=== PATIENT | female | born 1945 | race Caucasian/White ===

== ENCOUNTER 2019-11-27 01:17 | Inpatient (IN) | payer MEDICARE, OTHER ==
[2019-11-27] VITALS (23 sets, daily range): BP systolic 152–198; BP diastolic 80–108
[~2019-11-27] VITALS: Ht 170.2 cm; Wt 98.7 kg
[2019-11-27] MEDS ORDERED: MORPHINE SULFATE INJ 2 MG/ML DISP.SYRIN IV ONE ×2 (01:30→03:00)
--- NOTE | 2019-11-27 01:30 | NUR ---
PT [id number] FROM HOME C/O MIDSTERNAL CHEST PAIN RD TO R JAW AND R EAR. GIVEN 2SPR NITRO AND ASA 162 TEAM ASSEMBLER. +SOB +N/V. AUDIBLE WHEEZING UPON EXPIRATION NOTED. PT AAOX4. PT CONNECTED TO THE [employer] LEAD[employer]IP AND POX.
[2019-11-27] MEDS ORDERED: ONDANSETRON HCL/PF 4 MG/2 ML VIAL ONE (01:46)
[2019-11-27] MEDS ORDERED: MORPHINE SULFATE INJ 4 MG/ML DISP.SYRIN ONE ×2 (01:46→03:12)
[2019-11-27 01:49] LABS: BASOPHILS # (AUTO) 0.2 /CMM (0.0-0.2); BASOPHILS % (AUTO) 1.2 % (0.0-2.0); EOSINOPHILS % (AUTO) 3.4 % (0.0-6.0); HEMATOCRIT 32 % (33-45); HEMOGLOBIN 10.1 g/dL (11.5-14.8); LYMPHOCYTES # (AUTO) 1.1 /CMM (0.8-4.8); LYMPHOCYTES % (AUTO) 8.4 % (20.0-44.0); MEAN CORPUSCULAR HGB CONC 32 g/dl (31.0-36.0); MEAN CORPUSCULAR VOLUME 95 fL (82-100); MONOCYTES # (AUTO) 0.8 /CMM (0.1-1.30); MONOCYTES % (AUTO) 6.3 % (2.0-12.0); NEUTROPHILS # (AUTO) 10.7 /CMM (1.8-8.9); NEUTROPHILS % (AUTO) 80.7 % (43.0-81.0); PLATELET COUNT (AUTO) 339 /CMM (150-450); RED BLOOD CELL COUNT(AUTO) 3.32 MIL/uL (4.0-5.2); WHITE BLOOD COUNT (AUTO) 13.3 K/uL (4.3-11.0)
--- NOTE | 2019-11-27 01:54 | NUR ---
BLOOD COLLECTED AND SENT TO LAB
[2019-11-27 01:56] LABS: CALCIUM, SERUM 8.7 mg/dL (8.5-10.1); CARBON DIOXIDE 22 mmol/L (21-32); CHLORIDE 105 mmol/L (98-107); CREATININE 2.9 mg/dL (0.6-1.3); GLUCOSE 254 mg/dL (74-106); POTASSIUM 4.8 mmol/L (3.5-5.1); SODIUM SERUM 139 mmol/L (136-145); UREA NITROGEN, BLOOD 66 mg/dL (7-18)
[2019-11-27] MEDS ORDERED: ONDANSETRON HCL/PF 4 MG/2 ML VIAL IV ONE ×2 (02:00→11:00)
[2019-11-27] MEDS ORDERED: FUROSEMIDE 40 MG/4 ML VIAL ONE (03:23)
[2019-11-27] MEDS ORDERED: FUROSEMIDE 40 MG/4 ML VIAL IV ONE (03:30)
[2019-11-27] MEDS ORDERED: LEVO75TA7 PO (03:55)
[2019-11-27] MEDS ORDERED: ATOR40TA PO (03:55)
[2019-11-27] MEDS ORDERED: ALLO100T PO (03:56)
[2019-11-27] MEDS ORDERED: DULA0.75 SQ (03:57)
[2019-11-27] MEDS ORDERED: DEXTROSE 50%-WATER 50 ML DISP.SYRIN IV PRN (04:00)
[2019-11-27] MEDS ORDERED: MAG HYDROX/AL HYDROX/SIMETH 30 ML UDC PO PRN (04:00)
[2019-11-27] MEDS ORDERED: ONDANSETRON HCL/PF 4 MG/2 ML VIAL IVP PRN (04:00)
[2019-11-27] MEDS ORDERED: Z GUARD REMEDY 2 OZ OINT TP PRN (04:00)
[2019-11-27] MEDS ORDERED: MORPHINE SULFATE INJ 2 MG/ML DISP.SYRIN IV PRN (04:00)
[2019-11-27] MEDS ORDERED: HYDROCODONE/APAP 5/325MG 1 EACH TABLET PO PRN (04:00)
[2019-11-27] MEDS ORDERED: MAGNESIUM HYDROXIDE 30 ML UDC PO PRN (04:00)
--- NOTE | 2019-11-27 04:00 | NUR ---
180/96 BP. MADE AWARE
--- NOTE | 2019-11-27 04:12 | NUR ---
REPORT GIVEN TO LUISA AYALA FOR MIYA
--- NOTE | 2019-11-27 04:40 | NUR ---
WIENER PACKER: ADMISSION 47 y/o female transferred via [place] from ER. Patient here for Chest pain. Skin checked done with YVETTE Santana. Coccyx blanchable redness. Patient is A/O x4. Made comfortable in bed. Safety measure discussed, verbalized understanding.
--- NOTE | 2019-11-27 06:14 | NUR ---
FURNITURE FINISHER APPRENTICE: ELEVATED BP BP elevated 184/100 with repeat checked 180/87, Patient in bed, no c/o chest pain, denies headache, no c/o nausea no vomiting. Page Ellison,EQUIPMENT SPECIALIST awaiting call back.
[2019-11-27] MEDS: INSULIN REGULAR, HUMAN 100 UNIT/ML 3 ML VIAL SQ PRN ×4 (06:23→21:09)
[2019-11-27] MEDS: BLOOD SUGAR DIAGNOSTIC 1 EACH STRIP IN SCH ×4 (06:24→21:06)
--- NOTE | 2019-11-27 06:50 | NUR ---
IT AUDITOR: END OF SHIFT REPORT Patient in bed, awake. Oxygen saturation 93% on 2L NC, 89% in RA. Shortness of breath with exertion. Sinus Rhythm with First degree AVB in the Tele monitor. Informed Dr. Calhoun Re: elevated BP with repeat after 1HR and already page NGHIA Ellison, awaiting call back. Dr. Calhoun spoke with the patient with new orders placed. Will endorse to oncoming RN.
[2019-11-27] MEDS ORDERED: HEPARIN INFUSION/D5W 500 ML IV PRN (07:30)
--- NOTE | 2019-11-27 08:00 | NUR ---
INSPECTOR HANDBAG FRAMES OPENING NOTES RECEIVED PT IN BED AWAKE ALERT AND ORIENTED X3. NO CARDIAC OR RESPIRATORY DISTRESS NOTED. NO SOB NOTED. SATURATING WELL ON 2L/MIN VIA NC. PT IS VERBALLY RESPONSIVE. RESPONDS APPROPRIATELY TO QUESTIONS. NO COMPLAINTS OF CHEST PAIN AT THIS TIME. PER NURSES REPORT PTS BP THIS AM WAS 180/[address] FALCON WAS HERE EARLY IN THE MORNING AND WAS NOTIFIED AND HAD ORDERED FOR BP MEDS WELL HEPARIN DRIP. IV ACCESS NOTED ON L FOREARM G20. INTACT AND PATENT AND FLUSHING WELL. NO S/S OF INFILTRATION OR INFECTION NOTED. DVT PUMPS APPLIED. WILL FOLLOW UP WITH PHARMACY REGARDING HEPARIN INFUSION. ALERTED PT TO NOTIFY NURSE IF SHE EXPERIENCES ANY CHEST PAIN OR TIGHTNESS. SAFETY PRECAUTIONS IN PLACE. BED LOCKED AND IN LOW POSITION. SIDE RAILS UPX2. BED ALALRM ON. CALL LIGHT WITHIN REACH.
[2019-11-27] MEDS ORDERED: ALPR0.255 MT (08:20)
[2019-11-27] MEDS ORDERED: AMLO5TAB9 MT (08:20)
[2019-11-27] MEDS ORDERED: HYDR-4076 MT (08:20)
[2019-11-27] MEDS ORDERED: HEPARIN SODIUM, PORCINE 5000 UNITS/1 ML VIAL IV ONE (08:30)
--- NOTE | 2019-11-27 08:30 | NUR ---
COAGS COGS CURRENTLY BEING DRAWN AT THIS TIME BY PHLEBOTOMMEGHANAT.
[2019-11-27] MEDS: ASPIRIN 81 MG TAB.CHEW PO SCH (08:36)
[2019-11-27] MEDS: CARVEDILOL 6.25 MG TABLET PO SCH ×2 (08:37→20:32)
[2019-11-27] MEDS: AMLODIPINE BESYLATE 5 MG TABLET PO SCH (08:38)
[2019-11-27] MEDS: hydrALAZINE HCL 50 MG TABLET PO SCH ×3 (08:38→17:04)
[2019-11-27 08:43] LABS: THYROID STIMULATING HORMONE 5.204 uIU/mL (0.358-3.74)
--- NOTE | 2019-11-27 09:00 | NUR ---
HEPARIN DRIP HEPARIN DRIP STARTED AT THIS TIME AT 24ML/HR (1200UNITS/HR). WITNESSED BY CHARGE NURSE. NO S/S OF BLEEDING NOTED.
--- NOTE | 2019-11-27 09:30 | NUR ---
TROPONIN RECEIVED CALL FROM LAB REGARDING CRITICALLY HIGH TROPONIN VALUE OF 8.041. DR. FALCON MADE AWARE. NO NEW ORDERS GIVEN. PT IS CURRENTLY RECEIVING THE HEPARIN DRIP.
[2019-11-27] MEDS: HEPARIN INFUSION/D5W 500 ML IV PRN (10:30)
--- NOTE | 2019-11-27 10:30 | NUR ---
BP BP RECHEKED AFTER ALL BP MEDS WERE GIVEN THIS AM NOTED AT 191/98 HR 87.
[2019-11-27] MEDS: methylPREDNISolone SOD SUCC 125 MG/2ML VIAL IV SCH (10:57)
--- NOTE | 2019-11-27 11:00 | NUR ---
RN NOTES RECEIVED PT ON BED , A/OX4, ON 2 L O2 N/C , RESPIRATION EVEN AND UNLABORED, NO DISTRESS NOTED , PT ON NS AT 75CC /HR AND HEPARIN GTT AT 1200 U/HR , ON TELE SR WITH FIRST DEGREE AVB, HR IN 80'S , L FA IV SITE CLEAN, DRY AND INTACT, PT IS HARD STICK , ORDER RECEIVED FOR A MIDLINE INSERTION, SR UP x3, CALL LIGHT WITHIN EASY REACH, BED LOCKED AND IN LOWEST POSITION, CONTINUE TO MONITOR .
--- NOTE | 2019-11-27 11:00 | NUR ---
NAUSEA PT STILL COMPLAINING OF NAUSEA AND EMESIS X1. DR. HUNT ORDERED TO GIVE ANOTHER DOSE OF ZOFRAN X1 NOW.
--- NOTE | 2019-11-27 11:10 | NUR ---
TRANSFER TO ICU REPORT GIVEN TO SAGE MORAN IN ICU.
[2019-11-27] MEDS: NITROGLYCERIN PACKET 1 GM PACKET TOP SCH ×2 (11:43→17:04)
[2019-11-27] MEDS: IV NS 0.9% 1,000 ML IV PRN (11:45)
[2019-11-27 14:44] LABS: APPEARANCE,URINE CLEAR (CLEAR); BILIRUBIN,URINE NEGATIVE (NEGATIVE); BLOOD, URINE SMALL Ery/uL (NEGATIVE); COLOR,URINE YELLOW (YELLOW); KETONES,URINE NEGATIVE (NEGATIVE); LEUKOCYTE ESTERASE ,URINE NEGATIVE (NEGATIVE); NITRITE, URINE POSITIVE (NEGATIVE); PROTEIN,URINE >=300 mg/dl (NEGATIVE); UGLUCOSE 250 MG/DL mg/dL (NEGATIVE); UROBILINOGEN,URINE 0.2 EU/dL (0.2)
[2019-11-27 15:14] LABS: BACTERIA,URINE 4+ /HPF (None Seen); SQUAMOUS EPITHELIAL CELL,UR 0-2 /HPF (None Seen)
[2019-11-27 15:24] LABS: EOSINOPHIL,URINE None Seen
[2019-11-27 16:27] LABS: CREATININE, URINE 28.2 MG/DL (30.0-125.0); URINE TOTAL PROTEIN 371.4 mg/dL (0-11.9)
--- NOTE | 2019-11-27 16:59 | NUR ---
RN NOTES DR FALCON NOTIFIED REGARDING TROPONIN 10.723. NO NEW ORDER GIVEN , PT STABLE , CONTINUE TO MONITOR .
--- NOTE | 2019-11-27 18:13 | NUR ---
RN NOTES PT STABLE, ON 2L O2 N/C , REFUSED TO EAT DINNER , HEPARIN GTT AT 1200U/H AND NS AT 75CC/HR RUNNING VIA L UPPER ARM MIDLINE, SITE CLEAN, DRY AND INTACT, SR UP X3, CALL LIGHT WITHIN EASY REACH, BED LOCKED AND IN LOWEST POSITION, CONTINUE TO MONITOR.
--- NOTE | 2019-11-27 19:30 | NUR ---
RN NOTES RECEIVED PATIENT IN BED AWAKE AOX4. BREATHING NORMAL NO SOB NOTED, RESPIRATION EVEN NON LABORED. ON 2L OXYGEN VIA NC SATURATING 98%. ON TELE MONITOR SHOWS SR WITH FIRST DEGREE AVB, HR IN 80'S. LFA IV AND KATHYA MIDLINE INTACT PATENT HEPARIN AND FLUIDS RUNNING WELL. SKIN WARM AND DRY TO TOUCH. ABDOMEN SOFT AND NON DISTENDED. F/C INTACT YELLOW URINE RUNNING WELL TO GRAVITY. SAFETY MEASURES IN PLACE, CALL LIGHT WITHIN REACH. WILL CONT TO MONITOR FOR MIYA.
[2019-11-27] MEDS: IPRATROPIUM NEB FS 0.5 MG/2.5 ML AMPUL.NEB NEB SCH (20:12)
[2019-11-27] MEDS: ACETAMINOPHEN 325 MG TABLET PO PRN (21:36)
[2019-11-28] VITALS (37 sets, daily range): BP systolic 117–166; BP diastolic 58–102
[2019-11-28] MEDS: NITROGLYCERIN PACKET 1 GM PACKET TOP SCH ×2 (00:09→06:12)
[2019-11-28] MEDS: IV NS 0.9% 1,000 ML IV PRN (01:04)
[2019-11-28] MEDS: IPRATROPIUM NEB FS 0.5 MG/2.5 ML AMPUL.NEB NEB SCH ×4 (01:30→20:20)
[2019-11-28] MEDS: HEPARIN INFUSION/D5W 500 ML IV PRN (04:18)
[2019-11-28 05:37] LABS: BASOPHILS % (AUTO) 0.3 % (0.0-2.0); HEMATOCRIT 30 % (33-45); HEMOGLOBIN 9.7 g/dL (11.5-14.8); LYMPHOCYTES # (AUTO) 0.8 /CMM (0.8-4.8); LYMPHOCYTES % (AUTO) 5.2 % (20.0-44.0); MEAN CORPUSCULAR HGB CONC 32 g/dl (31.0-36.0); MEAN CORPUSCULAR VOLUME 93 fL (82-100); MONOCYTES # (AUTO) 0.8 /CMM (0.1-1.30); MONOCYTES % (AUTO) 5.1 % (2.0-12.0); NEUTROPHILS # (AUTO) 13.6 /CMM (1.8-8.9); NEUTROPHILS % (AUTO) 89.4 % (43.0-81.0); PLATELET COUNT (AUTO) 351 /CMM (150-450); RED BLOOD CELL COUNT(AUTO) 3.24 MIL/uL (4.0-5.2); WHITE BLOOD COUNT (AUTO) 15.2 K/uL (4.3-11.0)
[2019-11-28] MEDS: ACETAMINOPHEN 325 MG TABLET PO PRN (06:03)
[2019-11-28 06:08] LABS: ALANINE AMINOTRANSFERASE 14 U/L (12-78); ALBUMIN 2.6 g/dL (3.4-5.0); ALKALINE PHOSPHATASE 94 U/L (46-116); ASPARTATE AMINOTRANSFERASE 38 U/L (15-37); BILIRUBIN,TOTAL 0.3 mg/dL (0.2-1.0); CALCIUM, SERUM 8.5 mg/dL (8.5-10.1); CARBON DIOXIDE 21 mmol/L (21-32); CHLORIDE 104 mmol/L (98-107); CREATININE 2.8 mg/dL (0.6-1.3); GLUCOSE 203 mg/dL (74-106); PHOSPHORUS 6.1 mg/dL (2.5-4.9); POTASSIUM 5.2 mmol/L (3.5-5.1); SODIUM SERUM 137 mmol/L (136-145); TOTAL PROTEIN, SERUM 7.1 g/dL (6.4-8.2); UREA NITROGEN, BLOOD 65 mg/dL (7-18)
[2019-11-28 06:15] LABS: CHOLESTEROL 166 mg/dL (<200); CREATINE KINASE, TOTAL 109 U/L (26-192); HDL CHOLESTEROL 45 mg/dL (40-60); LDL 96 mg/dL (0-99); THYROID STIMULATING HORMONE 1.933 uIU/mL (0.358-3.74); TRIGLYCERIDES 178 mg/dL (30-150)
--- NOTE | 2019-11-28 06:15 | NUR ---
RECEIVED CALL FROM LAB TROPONIN LEVEL 7.[address] KARUNA ELKINS NNO.
--- NOTE | 2019-11-28 06:20 | NUR ---
PATIENT C/O RIGHT SIDE JAW PAIN 4/[address]. CHARGE NURSE NOTIFIED. START EKG ORDERED.
--- NOTE | 2019-11-28 06:30 | NUR ---
EKG SHOWS SR FREIDA DR. BECKMAN AWARE NNO. WILL CONT TO MONITOR PATIENT CLOSELY.
--- NOTE | 2019-11-28 06:58 | NUR ---
RN NOTES PATIENT CONTINUES ON HEPARIN DRIP TOLERATING WELL NO S/S OF BLEEDING NOTED. ON 2L OXYGEN VIA NC SATURATING WELL 99%. KATHYA MIDLINE INTACT PATENT RUNNING WELL. NO S/S OF ACUTE DISTRESS NOTED. F/C INTACT URINE RUNNING TO GRAVITY. SAFETY MEASURES IN PLACE. ENDORSE TO AM NURSE FOR MIYA.
--- NOTE | 2019-11-28 07:05 | NUR ---
RN NOTES RECEIVED PATIENT ON BED A/O X4. ON 2L OXYGEN VIA NC SATURATING 98%. ON TELE MONITOR SHOWS SR WITH FIRST DEGREE AVB, HR IN 70'S, . PT HARPREET ANY CHEST PAIN AT THIS TIME, CONTINUE TO MONITOR . LFA IV AND KATHYA MIDLINE SITES , CLEAN, DRY AND INTACT PATENT, HEPARIN AT 1400U/HR RUNNING, SKIN WARM AND DRY TO TOUCH. NGUYEN DRINING TO GRAVITY WITH YELLOW CLEAR URINE, SR UP x3, CALL LIGHT WITHIN EASY REACH, SAFETY MEASURES IN PLACE, CALL LIGHT WITHIN REACH. WILL CONT TO MONITOR.
[2019-11-28] MEDS: AMLODIPINE BESYLATE 5 MG TABLET PO SCH (08:29)
[2019-11-28] MEDS: ASPIRIN 81 MG TAB.CHEW PO SCH (08:32)
[2019-11-28] MEDS: CARVEDILOL 6.25 MG TABLET PO SCH ×2 (08:33→21:02)
[2019-11-28] MEDS: BLOOD SUGAR DIAGNOSTIC 1 EACH STRIP IN SCH ×3 (08:34→17:13)
[2019-11-28] MEDS: methylPREDNISolone SOD SUCC 125 MG/2ML VIAL IV SCH (08:34)
[2019-11-28] MEDS: hydrALAZINE HCL 50 MG TABLET PO SCH ×3 (08:34→16:31)
[2019-11-28] MEDS: INSULIN REGULAR, HUMAN 100 UNIT/ML 3 ML VIAL SQ PRN ×2 (08:35→17:12)
[2019-11-28] MEDS ORDERED: FUROSEMIDE 40 MG/4 ML VIAL IV SCH (10:30)
[2019-11-28] MEDS ORDERED: IV NS 0.9% 1,000 ML IV PRN (11:00)
[2019-11-28] MEDS ORDERED: IV NS 0.9% 50 ML IV ONE (11:08)
[2019-11-28] MEDS ORDERED: VERAPAMIL HCL IV 5 MG/2 ML VIAL ONE (11:09)
[2019-11-28] MEDS ORDERED: NITROGLYCERIN ICAR 1,000 MCG/10 ML VIAL ICAR ONE (11:09)
[2019-11-28] MEDS ORDERED: IODIXANOL 150 ML IV ONE (11:09)
[2019-11-28] MEDS ORDERED: LIDOCAINE HCL/PF 1% 30 ML SDV ONE (11:09)
[2019-11-28] MEDS ORDERED: IV SET PRIMARY PUMP SET 1 EA INFUS.SET MC ONE ×2 (11:18→11:31)
--- NOTE | 2019-11-28 11:23 | NUR ---
RN NOTES PT GOING TO CRUISE DIRECTOR IN STABLE CONDITION AT THIS TIME,
[2019-11-28] MEDS ORDERED: IV NS 0.9% 500 ML IV ONE (11:31)
--- NOTE | 2019-11-28 11:38 | NUR ---
RN NOTES CALL RECEIVED FROM LAB THAT PT COVID AG ROSITA IS NEGATIVE , DR GARDNER NOTIFED.
[2019-11-28] MEDS ORDERED: MIDAZOLAM HCL 2 MG/2ML VIAL ONE (11:39)
[2019-11-28] MEDS ORDERED: HEPARIN SODIUM, PORCINE 1,000 UNIT/ML VIAL ONE ×2 (11:39→12:24)
[2019-11-28] MEDS ORDERED: FENTANYL PF 100MCG/2ML AMPUL ONE (11:39)
--- NOTE | 2019-11-28 13:07 | NUR ---
RN NOTES RECEIVED PT FROM GENETICS NURSE, PT IS A/OX4, ON 3L 2 N/C , O2 SAT WNL, NO DISTRESS NOTED, ON TELE SR HR IN 70'S, TR BAND COMPRESSION DEVICE ON ON R WRIST AND ALIGNED WITH GREEN MARKER , BALLOON IS 14 CC INFLATED PER REPORT. SITE CLEAN ,DRY AND INTACT, NO SIGNS OF BLEEDING AND HEMATOMA NOTED, , PT IS ABLE TO MOVE HER FINGERS , DENIES AND NUMBNESS AND TINGLING, POSITIVE RIGHT RADIAL PULSED NOTED ON PALPATION, SR UP X3, CALL LIGHT WITHIN EASY REACH, CONTINUE TO MONITOR .
--- NOTE | 2019-11-28 15:12 | NUR ---
s/p heart cath and patient requires higher level of care transfer for possible CABG. Dr. Burns irma be the accepting thoracic surgeon and Dr. García will be the accepting primary medicine.Spoke with Sarah at [facility] ctr [phone] and faxed clinicals - pending review . Spoke with Kendra at [facility] ctr- will coordinate once [facility] cleared patient for acceptance. Addendum: 11/28/19 at 1513 by REGIS PEARSON RN Amended: Links added.
--- NOTE | 2019-11-28 16:00 | NUR ---
RN NOTES TR BAND REMOVED ,R WRIST CATHETER INSERTION SITE CLEAN, DRY AND INTACT , NO COMPLICATION NOTED, DRESSING APPLIED TO THE SITE, CONTINUE TO MONITOR .
[2019-11-28] MEDS ORDERED: NITROGLYCERIN PACKET 1 GM PACKET TOP SCH (17:00)
[2019-11-28] MEDS ORDERED: HEPARIN INFUSION/D5W 500 ML IV PRN (17:00)
--- NOTE | 2019-11-28 18:00 | NUR ---
RN NOTES PT STABLE, WILL BE TRANSFER TO [facility] BED 3 , AROUND 9PM PER MD ORDER AND CASE MANAGEMENT.
--- NOTE | 2019-11-28 18:15 | NUR ---
RN NOTES TRANSFER SKIN PHOTO TAKEN, NO REDNESS NOTED ON SACRUM .
--- NOTE | 2019-11-28 18:33 | NUR ---
RN NOTES VSS STABLE, R WRIST CATHETER INSERTION SITE CLEAN, DRY AND INTACT , HEPARIN GTT AT 1400U/HR RUNNING AT THIS TIME, NO SIGN OF COMPLICATION NOTED, NGUYEN DRAINING TO GRAVITY, WILL ENDORSE TO GEM TECHNICIAN NURSE FOR CONTINUITY OF CARE .
--- NOTE | 2019-11-28 19:22 | NUR ---
Jason Smith at [facility] transfer ctr- [phone],patient has been cleared and accepted at [facility] going to Emergent ICU room#3, Nurse to call report to [phone]. Accepting Medicine- Dr. Galvan, cardiothoracic - Dr. Burns. Critical care transport tow picker 2 9pm with [facility] [phone]. Spoke with patient Donald [phone], aware and agreed with current plan. Addendum: 11/28/19 at 1923 by REGIS PEARSON RN Amended: Links added.
--- NOTE | 2019-11-28 19:30 | NUR ---
RN NOTES RECEIVED PATIENT IN BED AOX4, BREATHING NORMAL NO SOB NOTED. CONTINUES ON 3LOXYGEN VIA NC SATURATING 100%. NO S/S OF DISTRESS NOTED. KATHYA HEPARIN DRIP RUNNING NO S/S OF BLEEDING NO BRUISING NOTED. F/C INTACT YELLOW URINE RUNNING TO GRAVITY. PATIENT AWAITING TO BE TRANSFER TO [facility] FOR STENT PLACEMENT. ALL SAFETY MEASURES IN PLACE. WILL CONT TO MONITOR CLOSELY.
--- NOTE | 2019-11-28 20:15 | NUR ---
RN NOTES REPORT GIVEN TO SHERLYN HEAD OF HISTORY.
--- NOTE | 2019-11-28 21:40 | NUR ---
RN NOTES PATIENT LEFT VIA [facility] FOR TRANSFER TO [facility]. PATIENT IS ALERT ORIENTED X4 AWAKE AND STABLE WITH LATEST VITALS B/P-158/75,HR78, TEMP9+8.5. RR-21, O2SAT 99%. AT 3L O2 VIA NC. SAFELY TRANSFER FROM BED TO [facility] ALL BELONGINGS HAND OVER TO THE PATIENT. REPORT GIVEN TO EMS THAT PATIENT CONTINUES ON HEPARIN DRIP NEXT APTT AT 2300. RECEIVING NURSE AWARE OF THE PATIENT. PATIENT ON ROUTE TO [facility] VIA [facility].
--- NOTE | 2019-11-28 21:45 | NUR ---
CALL PATIENT'S DAUGHTER DANAE AND MILI REGARDING PATIENT'S DISCHARGE TO [facility].
[2019-11-29 13:17] LABS: PTH, INTACT 656 pg/mL (15-65)
[2019-12-01 07:30] LABS: *SPE A/G RATIO 0.7 (0.7-1.7); *SPE ALBUMIN 2.6 g/dL (2.9-4.4); *SPE ALPHA-1-GLOBULIN 0.3 g/dL (0.0-0.4); *SPE ALPHA-2-GLOBULIN 1.1 g/dL (0.4-1.0); *SPE BETA GLOBULIN 1.1 g/dL (0.7-1.3); *SPE GLOBULIN, TOTAL 3.7 g/dL (2.2-3.9); *SPE M-SPIKE Not Observed g/dL (Not Observed); *SPEGAMMA GLOBULIN 1.2 g/dL (0.4-1.8)
== END 2019-11-28 21:37 | disposition short-term general hospital (02) | DRG 280 ==
LOC: ER 01:20 → TELE 04:02 → ICU 11:04
PROVIDERS: ADMIT Nurse Practitioner Acute Care; ATTEND Nurse Practitioner Acute Care
PROC: 05H533Z Insertion of Infusion Device into Right Subclavian Vein, Percutaneous Approach (ICD-10-PCS; 2019-11-27)
PROC: B546ZZA Ultrasonography of Right Subclavian Vein, Guidance (ICD-10-PCS; 2019-11-27)
PROC: 4A023N7 Measurement of Cardiac Sampling and Pressure, Left Heart, Percutaneous Approach (ICD-10-PCS; principal; 2019-11-28)
PROC: B211YZZ Fluoroscopy of Multiple Coronary Arteries using Other Contrast (ICD-10-PCS; 2019-11-28)
DX: I21.4 Non-ST elevation (NSTEMI) myocardial infarction (principal); N17.0 Acute kidney failure with tubular necrosis; I50.23 Acute on chronic systolic (congestive) heart failure; I13.0 Hypertensive heart and chronic kidney disease with heart failure and stage 1 through stage 4 chronic kidney disease, or unspecified chronic kidney disease; J84.9 Interstitial pulmonary disease, unspecified; I16.9 Hypertensive crisis, unspecified; I42.9 Cardiomyopathy, unspecified; E03.9 Hypothyroidism, unspecified; E11.65 Type 2 diabetes mellitus with hyperglycemia; E78.5 Hyperlipidemia, unspecified; M10.9 Gout, unspecified; E11.22 Type 2 diabetes mellitus with diabetic chronic kidney disease; N18.9 Chronic kidney disease, unspecified; D63.1 Anemia in chronic kidney disease; K58.9 Irritable bowel syndrome, unspecified; E11.51 Type 2 diabetes mellitus with diabetic peripheral angiopathy without gangrene; Z98.61 Coronary angioplasty status; I25.10 Atherosclerotic heart disease of native coronary artery without angina pectoris
CPT/HCPCS: 36415; 71045-TC; 76770-TC; 80048-TC; 80053-TC; 80061-TC; 81000-TC; 82550-TC; 82570-TC; 82728-TC; 82962-TC; 83540-TC; 83735-TC; 83880; 83970; 84100-TC; 84155; 84155-TC; 84165; 84300-TC; 84439-TC; 84443-TC; 84484-TC; 85025-TC; 85610-TC; 85730-TC; 87081-TC; 87086-TC; 93307-TC; 94799-TC; A4216; C1887; G0378; G0500; J1644; J1815; J1940; J2250; J2270; J2405; J2930; J3010; J3490; J7030; J7040; Q9967; U0003-CS

== ENCOUNTER 2020-05-19 11:11 | Inpatient (IN) | payer MEDICARE, OTHER ==
[~2020-05-19] VITALS: Ht 167.6 cm; Wt 81.6 kg
[2020-05-19] VITALS (10 sets, daily range): BP systolic 64–102; BP diastolic 33–49
[~2020-05-19 11:11] MED LIST: ALLO100T PO; ALPR0.255 MT; AMLO-212 PO; ATOR40TA PO; DULA0.75 SQ; HYDR-4076 PO; LEVO75TA7 PO
--- NOTE | 2020-05-19 11:48 | NUR ---
[facility]UDLEY [facility]AMPO [facility], TO ER BED 12, HOOKED TO PODIATRIC TECHNICIAN, BP CUFF AND POX. CHANGED TO HOSP GOWN, WARM BLANKET PROVIDED, PATIENT AAO x 3 , BREATHING EVEN AND UNLABORED, NAD NOTED. AWAITING MD RODRIGUEZ. Addendum: 05/19/20 at 1947 by DOMINIC [facility], TO ER BED 12, HOOKED TO PODIATRIC TECHNICIAN, BP CUFF AND POX. CHANGED TO HOSP GOWN, WARM BLANKET PROVIDED, PATIENT AAO x 0, EYES OPEN BUT NOT RESPONDING , BREATHING EVEN AND UNLABORED, NAD NOTED. AWAITING MD RODRIGUEZ.
[2020-05-19] MEDS ORDERED: LEVO175T7 PO (11:50)
[2020-05-19] MEDS ORDERED: ROSU5TAB13 PO (11:50)
[2020-05-19] MEDS ORDERED: CARV6.252 PO (11:50)
[2020-05-19] MEDS ORDERED: CLOP75TA15 PO (11:50)
[2020-05-19] MEDS ORDERED: PANT40TA49 PO (11:50)
[2020-05-19] MEDS ORDERED: LINA72CA PO (11:50)
[2020-05-19] MEDS ORDERED: DULO20CA19 PO (11:50)
[2020-05-19] MEDS ORDERED: APIX5TAB PO (11:50)
[2020-05-19] MEDS ORDERED: NALOXONE HCL 0.4 MG/ML AMPUL ONE (12:16)
[2020-05-19] MEDS ORDERED: NALOXONE PREFILLED SYRINGE 2 MG/2 ML SYRINGE ONE (12:19)
[2020-05-19] MEDS ORDERED: IV NS 0.9% 1,000 ML BAG IV ONE ×2 (12:30→14:00)
[2020-05-19] MEDS ORDERED: CLON0.1T14 PO (12:50)
[2020-05-19] MEDS ORDERED: HYDR-4384 PO (12:50)
[2020-05-19] MEDS ORDERED: HYDR1LIQ PO (12:50)
[2020-05-19] MEDS ORDERED: INSU100V36 SQ (12:50)
[2020-05-19] MEDS ORDERED: METH500T4 PO (12:50)
[2020-05-19] MEDS ORDERED: SENN1TAB6 PO (12:50)
[2020-05-19] MEDS ORDERED: IPRA3AMP23 IH (12:50)
[2020-05-19] MEDS ORDERED: CARV12.52 PO (12:50)
[2020-05-19] MEDS ORDERED: BRIM5DRO3 EACHEYE (12:50)
[2020-05-19] MEDS ORDERED: MELA1TAB27 PO (12:50)
[2020-05-19] MEDS ORDERED: METH5TAB2 PO (12:50)
[2020-05-19] MEDS ORDERED: DEXA0.5E PO (12:50)
[2020-05-19] MEDS ORDERED: DICL20GE TOP (12:50)
[2020-05-19] MEDS ORDERED: POLY17PO4 PO (12:50)
[2020-05-19 12:53] LABS: BASOPHILS % (AUTO) 0.1 % (0.0-2.0); HEMATOCRIT 25 % (33-45); HEMOGLOBIN 7.4 g/dL (11.5-14.8); LYMPHOCYTES # (AUTO) 0.3 /CMM (0.8-4.8); LYMPHOCYTES % (AUTO) 1.8 % (20.0-44.0); MEAN CORPUSCULAR HGB CONC 30 g/dl (31.0-36.0); MEAN CORPUSCULAR VOLUME 96 fL (82-100); MONOCYTES # (AUTO) 0.1 /CMM (0.1-1.30); MONOCYTES % (AUTO) 0.9 % (2.0-12.0); NEUTROPHILS # (AUTO) 15.5 /CMM (1.8-8.9); NEUTROPHILS % (AUTO) 97.2 % (43.0-81.0); PLATELET COUNT (AUTO) 253 /CMM (150-450); RED BLOOD CELL COUNT(AUTO) 2.62 MIL/uL (4.0-5.2)
--- NOTE | 2020-05-19 12:57 | NUR ---
DAUGHTER AT BEDSIDE
--- NOTE | 2020-05-19 13:02 | NUR ---
DAUGHTER REFUSED CHEST XRAY. MADE AWARE
[2020-05-19 13:14] LABS: ALANINE AMINOTRANSFERASE 21 U/L (12-78); ALKALINE PHOSPHATASE 246 U/L (46-116); ASPARTATE AMINOTRANSFERASE 31 U/L (15-37); B-TYPE NATRIURETIC PEPTIDE 18249 PG/ML (0-125); BILIRUBIN,DIRECT 0.4 mg/dL (0.0-0.2); BILIRUBIN,TOTAL 0.8 mg/dL (0.2-1.0); CALCIUM, SERUM 8.7 mg/dL (8.5-10.1); CARBON DIOXIDE 18 mmol/L (21-32); CHLORIDE 95 mmol/L (98-107); CREATININE 5.7 mg/dL (0.6-1.3); GLUCOSE 209 mg/dL (74-106); SODIUM SERUM 134 mmol/L (136-145); TOTAL PROTEIN, SERUM 6.7 g/dL (6.4-8.2)
[2020-05-19 13:17] LABS: POTASSIUM 6.7 mmol/L (3.5-5.1); UREA NITROGEN, BLOOD 163 mg/dL (7-18)
[2020-05-19 13:18] LABS: ALBUMIN 1.4 g/dL (3.4-5.0)
[2020-05-19] MEDS ORDERED: DEXTROSE 50%-WATER 50 ML DISP.SYRIN IV ONE (13:30)
[2020-05-19] MEDS ORDERED: SODIUM BICARBONATE SYR 50 MEQ/50 ML DISP.SYRIN IV ONE (13:30)
[2020-05-19] MEDS ORDERED: Calcium Gluconate 1GM/10ML 9.3 MEQ in IV D5W 250 ML IV ONE (13:30)
[2020-05-19] MEDS ORDERED: INSULIN REGULAR, HUMAN 100 UNIT/ML 10 ML VIAL IV ONE (13:30)
[2020-05-19] MEDS ORDERED: FENTANYL PF 100MCG/2ML AMPUL IV ONE (13:30)
[2020-05-19 13:31] LABS: BAND % (MANUAL) 10 % (0.0-5.0); LYMPHOCYTES % (MANUAL) 2 % (16-48); MONOCYTES % (MANUAL) 2 % (0-11.0); NEUTROPHILS % (MANUAL) 86 (42-76)
[2020-05-19] MEDS ORDERED: FENTANYL PF 100MCG/2ML AMPUL ONE (13:56)
[2020-05-19] MEDS ORDERED: INSULIN REGULAR, HUMAN 100 UNIT/ML 10 ML VIAL ONE (13:56)
[2020-05-19] MEDS ORDERED: DEXTROSE 50%-WATER 50 ML DISP.SYRIN ONE (13:56)
[2020-05-19] MEDS ORDERED: SODIUM BICARBONATE SYR 50 MEQ/50 ML DISP.SYRIN ONE (14:04)
--- NOTE | 2020-05-19 14:07 | NUR ---
CALLED NURSING SUP FOR TELE BED.
--- NOTE | 2020-05-19 14:49 | NUR ---
DANAE RENNER DAUGHTER VERBALIZED FULL CODE FOR PATIENT
[2020-05-19] MEDS ORDERED: Calcium Gluconate 0.465 MEQ/ML VIAL IV ONE (15:31)
--- NOTE | 2020-05-19 15:44 | NUR ---
RAPID COVID AND PCR SWAB DONE AND SENT TO LAB
--- NOTE | 2020-05-19 15:44 | NUR ---
PICC LINE NURSE AT BEDSIDE
--- NOTE | 2020-05-19 16:16 | NUR ---
SHANTAL PICC LINE IN PLACED.
--- NOTE | 2020-05-19 17:33 | NUR ---
DAUGHTER SIGNED CONSENT FOR BLOOD TRANSFUSION
--- NOTE | 2020-05-19 18:05 | NUR ---
VERIFIED BLOOD UNIT WITH MARGIE RAY RN
--- NOTE | 2020-05-19 18:09 | NUR ---
PRE BLOOD TRANSFUSION VS TAKEN AND RECORDED.
--- NOTE | 2020-05-19 18:25 | NUR ---
NO NOTED BLOOD TRANSFUSION ADVERSE REACTION NOTED.
--- NOTE | 2020-05-19 18:42 | NUR ---
PATIENT NOTED W BLACK WATERY STOOL. CLEANED PATIENT, CHANGED DIAPER AND HOSP GOWN. KEPT WARM AND COMFORTABLE.
--- NOTE | 2020-05-19 19:38 | NUR ---
ENDORSEMENT GIVEN TO PATTIE MORAN FOR MIYA
--- NOTE | 2020-05-19 21:04 | NUR ---
REPORT GIVEN TO JAMI MOREL RN FOR MIYA.
--- NOTE | 2020-05-19 21:21 | NUR ---
PATIENT TAKEN UP TO ASSIGNED ROOM FOR MIYA.
[2020-05-19] MEDS ORDERED: NOREPINEPHRINE 4 MG/4 ML AMPUL IV ONE (21:52)
[2020-05-19] MEDS: NOREPINEPHRINE 32 MG in IV NS 0.9% 218 ML IV PRN (22:00)
[2020-05-19] MEDS ORDERED: ZOLPIDEM TARTRATE 5 MG TABLET PO PRN (23:00)
[2020-05-19] MEDS ORDERED: ONDANSETRON HCL/PF 4 MG/2 ML VIAL IVP PRN (23:00)
[2020-05-19] MEDS ORDERED: ACETAMINOPHEN 325 MG TABLET PO PRN (23:00)
[2020-05-19] MEDS ORDERED: IV NS 0.9% 500 ML IV ONE (23:00)
[2020-05-19] MEDS ORDERED: MAG HYDROX/AL HYDROX/SIMETH 30 ML UDC PO PRN (23:00)
[2020-05-19] MEDS ORDERED: Z GUARD REMEDY 2 OZ OINT TP PRN (23:00)
[2020-05-19] MEDS ORDERED: DOSING PER PHARMACY-AMIKACI IV XX PRN (23:00)
[2020-05-19 23:29] LABS: BASOPHILS # (AUTO) 0.1 /CMM (0.0-0.2); BASOPHILS % (AUTO) 0.2 % (0.0-2.0); EOSINOPHILS % (AUTO) 0.1 % (0.0-6.0); HEMATOCRIT 28 % (33-45); HEMOGLOBIN 8.7 g/dL (11.5-14.8); LYMPHOCYTES # (AUTO) 0.3 /CMM (0.8-4.8); MEAN CORPUSCULAR HGB CONC 31 g/dl (31.0-36.0); MEAN CORPUSCULAR VOLUME 90 fL (82-100); MONOCYTES # (AUTO) 0.1 /CMM (0.1-1.30); MONOCYTES % (AUTO) 0.4 % (2.0-12.0); NEUTROPHILS # (AUTO) 31.4 /CMM (1.8-8.9); NEUTROPHILS % (AUTO) 98.3 % (43.0-81.0); PLATELET COUNT (AUTO) 321 /CMM (150-450); RED BLOOD CELL COUNT(AUTO) 3.14 MIL/uL (4.0-5.2)
[2020-05-19 23:34] LABS: WHITE BLOOD COUNT (AUTO) 31.9 K/uL (4.3-11.0)
[2020-05-19 23:48] LABS: ALANINE AMINOTRANSFERASE 49 U/L (12-78); ALKALINE PHOSPHATASE 276 U/L (46-116); ASPARTATE AMINOTRANSFERASE 99 U/L (15-37); BILIRUBIN,TOTAL 0.9 mg/dL (0.2-1.0); CALCIUM, SERUM 8.4 mg/dL (8.5-10.1); CARBON DIOXIDE 24 mmol/L (21-32); CHLORIDE 98 mmol/L (98-107); CREATININE 3.5 mg/dL (0.6-1.3); GLUCOSE 221 mg/dL (74-106); MAGNESIUM 2.1 mg/dL (1.8-2.4); PHOSPHORUS 5.7 mg/dL (2.5-4.9); POTASSIUM 4.5 mmol/L (3.5-5.1); SODIUM SERUM 138 mmol/L (136-145); TOTAL PROTEIN, SERUM 6.3 g/dL (6.4-8.2)
[2020-05-20] VITALS (65 sets, daily range): BP systolic 52–148; BP diastolic 21–83
[2020-05-20] LABS: BAND % (MANUAL) 7 % (0.0-5.0); NEUTROPHILS % (MANUAL) 91 (42-76)
[2020-05-20 00:01] LABS: LYMPHOCYTES % (MANUAL) 1 % (16-48); MONOCYTES % (MANUAL) 1 % (0-11.0)
[2020-05-20 00:03] LABS: ALBUMIN 1.4 g/dL (3.4-5.0); UREA NITROGEN, BLOOD 101 mg/dL (7-18)
[2020-05-20] MEDS: IV NS 0.9% 1,000 ML IV PRN ×2 (00:15→10:43)
[2020-05-20] MEDS ORDERED: AMIKACIN 500 MG in IV D5W 100 ML IV ONE (00:30)
[2020-05-20] MEDS ORDERED: VANCOMYCIN 1.25 GM in IV D5W 250 ML IV ONE (00:30)
[2020-05-20] MEDS ORDERED: VANCOMYCIN 1 GM VIAL ONE (00:54)
[2020-05-20] MEDS ORDERED: AMIKACIN 250 MG/ML VIAL ONE (01:33)
--- NOTE | 2020-05-20 04:10 | NUR ---
TELEMARKETING SALES REPRESENTATIVE PT WAS ADMITTED FROM ER WITH DIAGNOSIS RENAL FAILURE, RESPIRATORY FAILURE, ANEMIA. PT IS LETHARGIC, DOES NOT FOLLOW COMMANDS, DOES NOT MOVE EXTREMITIES. PT IS HYPOTENSIVE. TOTALLY GIVEN 2.5 L. BOLUS NS. PT WAS ALSO TRANSFUSED 1 UNIT PRBC. STARTED LEVOPHED DRIP ACCORDING MD ORDER. HEMODIALYSIS WAS DONE.PT HAS LEFT UPPER CHEST EARL CATH., NO FLUID WAS REMOVED. MAIN IV NS @ 100 MLS/HR VIA RIGHT UPPER ARM PICC LINE. STARTED ANTIBIOTICS IV-VANCOMYCIN 1.25 G & AMIKACIN 500 ML. F/C WAS INSERTED, NO URINE OUTPUT, SMALL AMT. OF DARK BROWNISH COLOR BLOOD IN VAGINA /PT HAS HISTORY OF [facility]/. VSS, AFEBRILE, SCOPE-SR WITH PVC'S & PAC'S...
[2020-05-20] MEDS: HYDROCORTISONE SOD SUCCINATE 100 MG/2 ML VIAL IV SCH ×2 (04:52→12:21)
[2020-05-20 04:53] LABS: EOSINOPHILS % (AUTO) 0.6 % (0.0-6.0); HEMATOCRIT 26 % (33-45); LYMPHOCYTES # (AUTO) 0.3 /CMM (0.8-4.8); LYMPHOCYTES % (AUTO) 0.9 % (20.0-44.0); MEAN CORPUSCULAR HGB CONC 31 g/dl (31.0-36.0); MEAN CORPUSCULAR VOLUME 91 fL (82-100); MONOCYTES # (AUTO) 0.9 /CMM (0.1-1.30); MONOCYTES % (AUTO) 2.6 % (2.0-12.0); NEUTROPHILS # (AUTO) 31.8 /CMM (1.8-8.9); NEUTROPHILS % (AUTO) 95.9 % (43.0-81.0); PLATELET COUNT (AUTO) 269 /CMM (150-450); RED BLOOD CELL COUNT(AUTO) 2.84 MIL/uL (4.0-5.2)
[2020-05-20 04:56] LABS: WHITE BLOOD COUNT (AUTO) 33.2 K/uL (4.3-11.0)
[2020-05-20 05:17] LABS: CHOLESTEROL 49 mg/dL (<200); HDL CHOLESTEROL 10 mg/dL (40-60); LDL 12 mg/dL (0-99); TRIGLYCERIDES 179 mg/dL (30-150)
[2020-05-20 05:23] LABS: CALCIUM, SERUM 8.3 mg/dL (8.5-10.1); CARBON DIOXIDE 19 mmol/L (21-32); CHLORIDE 96 mmol/L (98-107); CREATININE 3.6 mg/dL (0.6-1.3); GLUCOSE 301 mg/dL (74-106); MAGNESIUM 2.1 mg/dL (1.8-2.4); POTASSIUM 4.3 mmol/L (3.5-5.1); SODIUM SERUM 139 mmol/L (136-145); UREA NITROGEN, BLOOD 101 mg/dL (7-18)
[2020-05-20 05:38] LABS: LYMPHOCYTES % (MANUAL) 3 % (16-48); MONOCYTES % (MANUAL) 4 % (0-11.0); NEUTROPHILS % (MANUAL) 93 (42-76)
[2020-05-20] MEDS ORDERED: VANCOMYCIN POST DIALYSIS 500MG IV PRN ×2 (07:00)
[2020-05-20] MEDS ORDERED: AMIKACIN 500 MG in IV D5W 100 ML IV PRN (07:00)
[2020-05-20] MEDS: ALBUTEROL FS 2.5 MG/0.5 ML VIAL.NEB NEB SCH ×2 (07:05→15:00)
[2020-05-20] MEDS: IPRATROPIUM NEB FS 0.5 MG/2.5 ML AMPUL.NEB IH SCH ×2 (07:05→15:00)
[2020-05-20] MEDS ORDERED: LEVOTHYROXINE SODIUM 175 MCG TABLET PO SCH (07:30)
[2020-05-20 08:13] LABS: ABG BASE EXCESS -7.1 mmol/L; ABG OXYGEN SATURATION 98.9 % (92.0-98.5); ABG PCO2 21.2 mmHg (35.0-45.0); ABG PH 7.478 (7.350-7.450); ABG PO2 134.2 mmHg (75.0-100.0); AaDO2 162.5 mmHg; COHb 3.5 % (0.5-1.5); MetHb 0.1 % (0.0-1.5); O2Hb 95.3 % (94.0-97.0); SITE, ABG Right Radial
[2020-05-20] MEDS ORDERED: DICLOFENAC TOPICAL 100 GM GEL..GM. TP SCH (09:00)
[2020-05-20] MEDS ORDERED: ALLOPURINOL 100 MG TABLET PO SCH (09:00)
[2020-05-20] MEDS ORDERED: Medication Not On Formulary EA (Ipratropium/Albuterol Sulfate (Duoneb 2.5-0.5 Mg/3 Ml So IH SCH (09:00)
[2020-05-20] MEDS ORDERED: CLOPIDOGREL BISULFATE 75 MG TABLET PO SCH (09:00)
--- NOTE | 2020-05-20 09:31 | NUR ---
PER MD ORDERS. PT REMAINS NPO. NO PO MEDS ADMINISTERED PER MD ORDER.
[2020-05-20] MEDS: NOREPINEPHRINE 32 MG in IV NS 0.9% 218 ML IV PRN ×2 (09:34→17:48)
[2020-05-20 09:37] LABS: THYROID STIMULATING HORMONE 0.219 uIU/mL (0.358-3.74)
[2020-05-20] MEDS ORDERED: ACETAMINOPHEN 650 MG/SUPP.RECT RC PRN (12:00)
[2020-05-20] MEDS: HEPARIN SODIUM, PORCINE 5000 UNITS/1 ML VIAL SQ SCH ×2 (12:30→17:00)
--- NOTE | 2020-05-20 13:16 | NUR ---
INFORMED PT IS ANURIC AND ONLY DARK RED FLUID DRAINING IN NGUYEN. RECEIVED VERBAL ORDER TO HOLD THE 1230 SCHEDULED HEPARIN.
--- NOTE | 2020-05-20 15:50 | NUR ---
@ [address] Pagan for airway protection / ventilation due to post cardiac arrest. pt. is intubated with 7.5 et tube secured @ 23 cm center of the lips. CO2 detector changed to yellow color, breath sounds clear bilateral post intubation. vent settings below as order: AC 24 VT 500 ML FIO2 100% NO PEEP VENT PLUGGED INTO RED OUTLET WITH ALARMS ON AND FUNCTIONING. VISH @ BEDSIDE. Addendum: 05/20/20 at 1630 by MUSTAPHA SANCHEZ RT Amended: Links added.
[2020-05-20] MEDS ORDERED: ATROPINE SULFATE 1 MG/10 ML DISP.SYRIN IV ONE (16:20)
[2020-05-20] MEDS ORDERED: EPINEPHRINE (1:10,000) SYRINGE 1 MG/10 ML DISP.SYRIN IVP ONE (16:20)
[2020-05-20] MEDS ORDERED: SODIUM BICARBONATE SYR 50 MEQ/50 ML DISP.SYRIN IV ONE (16:20)
[2020-05-20] MEDS ORDERED: PHENYLEPHRINE 50 MG in IV NS 0.9% 245 ML IV PRN ×2 (16:30→18:00)
[2020-05-20] MEDS ORDERED: VASOPRESSIN INJ 40 UNIT in IV NS 0.9% 38 ML IV PRN (17:30)
[2020-05-20] MEDS ORDERED: DOPamine 400 MG in IV D5W 250 ML IV PRN (17:30)
[2020-05-20] MEDS ORDERED: PROPOFOL 100 ML IV PRN (17:30)
[2020-05-20 17:31] LABS: ABG BASE EXCESS -9.5 mmol/L; ABG OXYGEN SATURATION 99.8 % (92.0-98.5); ABG PCO2 26.6 mmHg (35.0-45.0); ABG PH 7.365 (7.350-7.450); ABG PO2 331.7 mmHg (75.0-100.0); AaDO2 354.7 mmHg; COHb 3.3 % (0.5-1.5); MetHb 0.2 % (0.0-1.5); O2Hb 96.3 % (94.0-97.0); PEEP,BG 0 cm H2O; SITE, ABG Right Radial; VT, ABG 500 mL
--- NOTE | 2020-05-20 17:44 | NUR ---
ISSUES WITH EMAR. PT ON ORDERED NEOSYNEPHRINE ORDERED. STARTED 1645 AT ORDERED 0.5 MCG/KG/MIN AND TITRATED UP BY 0.5MCG/KG/MIN Q15 MINS UP TO 3 MCG/KG/MIN. PHARMACY AND MD AWARE. 1545 PT TITRATED UP TO 3MCG/KG/MIN ORDERED BP REMAINED <90 SBP AND MAP < 65. CONTIUING TO MONITOR.
--- NOTE | 2020-05-20 17:45 | NUR ---
vent changes per dr. Levine: fio2 50% Addendum: 05/20/20 at 1745 by MUSTAPHA SANCHEZ RT Amended: Links added.
--- NOTE | 2020-05-20 17:48 | NUR ---
MD AWARE OF URETHRAL BLEEDING AND ORDERED TO HOLD LOVENOX THAT IS ORDERED FOR 1700. CONTINUING TO MONITOR HOURLY AND IMPLEMENTING ORDERS.
--- NOTE | 2020-05-20 18:20 | NUR ---
PER FAMILY WISHES. ORDERED DNR. NGHIA ALDRICH AWARE AND PLACED ORDER. Addendum: 05/20/20 at 3 by AUDRA PITTS RN ANTWON ALDRICH VERIFIED FAMILY WISHES.
--- NOTE | 2020-05-20 18:42 | NUR ---
ANTWON ALDRICH PRONOUNCED PATIENT 1841. FAMILY MADE AWARE. DNR FOLLOWED.
[2020-05-20] MEDS ORDERED: EPINEPHRINE (1:10,000) SYRINGE 1 MG/10 ML DISP.SYRIN ONE (18:59)
[2020-05-20] MEDS ORDERED: EPINEPHRINE (1:1000) 1 MG/ML AMPUL ONE (19:26)
[2020-05-20] MEDS ORDERED: ATORVASTATIN 10 MG TABLET PO SCH (22:00)
== END 2020-05-20 18:42 | disposition expired | DRG 871 ==
LOC: ER 11:12 → TRANSITION 20:19 → ICU 20:41
PROVIDERS: ADMIT Internal Medicine; ATTEND Internal Medicine
PROC: 30233N1 Transfusion of Nonautologous Red Blood Cells into Peripheral Vein, Percutaneous Approach (ICD-10-PCS; principal; 2020-05-19)
PROC: 5A1935Z Respiratory Ventilation, Less than 24 Consecutive Hours (ICD-10-PCS; 2020-05-20)
PROC: 5A12012 Performance of Cardiac Output, Single, Manual (ICD-10-PCS; 2020-05-20)
PROC: 0BH18EZ Insertion of Endotracheal Airway into Trachea, Via Natural or Artificial Opening Endoscopic (ICD-10-PCS; 2020-05-20)
PROC: 04HL33Z Insertion of Infusion Device into Left Femoral Artery, Percutaneous Approach (ICD-10-PCS; 2020-05-20)
DX: A41.9 Sepsis, unspecified organism (principal); J18.9 Pneumonia, unspecified organism; N18.6 End stage renal disease; R65.21 Severe sepsis with septic shock; G92 Toxic encephalopathy; I12.0 Hypertensive chronic kidney disease with stage 5 chronic kidney disease or end stage renal disease; C51.9 Malignant neoplasm of vulva, unspecified; Z99.2 Dependence on renal dialysis; E11.22 Type 2 diabetes mellitus with diabetic chronic kidney disease; E87.5 Hyperkalemia; I25.10 Atherosclerotic heart disease of native coronary artery without angina pectoris; G89.29 Other chronic pain; G47.30 Sleep apnea, unspecified; E03.9 Hypothyroidism, unspecified; E78.5 Hyperlipidemia, unspecified; D64.9 Anemia, unspecified; I25.2 Old myocardial infarction; L40.50 Arthropathic psoriasis, unspecified; Z92.3 Personal history of irradiation
CPT/HCPCS: 36415; 36600; 38221; 71045-TC; 80048-TC; 80053-TC; 80061-TC; 80076-TC; 80150; 80202-TC; 82140-TC; 82803-TC; 83540-TC; 83605-TC; 83735-TC; 83880; 84100-TC; 84439-TC; 84443-TC; 84484-TC; 85025-TC; 85730-TC; 86706; 86850-TC; 87040-TC; 87081-TC; 87340; 90935-TC; C9803; G0378; J0171; J0278; J0461; J0610; J1265; J1644; J1720; J1815; J2310; J2370; J3010; J3370; J3490; J7030; J7040; J7050; J7060; P9016-BL; U0003